=== PATIENT | male | born 1950 | race Caucasian/White ===

== ENCOUNTER 2019-06-12 00:19 | Inpatient (IN) ==
[2019-06-12] MEDS ORDERED: Dextrose Gel 15 GM/37.5 ML TUBE PO PRN ×4 (02:58→21:30)
[2019-06-12] MEDS: Ringers Solution, Lactated 1,000 ML IVC SCH ×2 (03:23→11:11)
[2019-06-12 04:42] LABS: Basophils % 0.2 %; Eosinophils # 0.1 K/mcL (0.0-0.6); Eosinophils % 0.8 %; Hematocrit 23.4 % (37.5-50.1); Hemoglobin 7.7 g/dL (12.9-16.9); Immature Granulocytes % 0.5 % (0-4); Lymphocytes # 2.4 K/mcL (0.6-4.6); Mean Corpuscular HGB Conc 32.9 g/dL (31.6-35.5); Mean Corpuscular Hemoglobin 30.2 pg (28.0-33.3); Mean Corpuscular Volume 91.8 fL (83.0-100.0); Mean Platelet Volume 9.7 fL (9.4-12.4); Monocytes # 1.1 K/mcL (0.0-1.3); Monocytes % 7.5 %; Neutrophils # 11.1 K/mcL (1.6-8.9); Platelet Count 271 K/mcL (140-400); Red Blood Count 2.55 M/mcL (4.19-5.50); Red Cell Distribution Width 14.1 % (11.5-14.5); White Blood Count 14.9 K/mcL (4.3-11.1)
[2019-06-12 04:51] LABS: INR 1.3; Prothrombin Time 14.7 Seconds (9.4-12.1)
[2019-06-12 05:08] LABS: Alanine Aminotransferase 20 Units/L (7-52); Albumin 2.8 g/dL (3.5-5.7); Albumin/Globulin Ratio 0.8 (1.1-2.2); Alkaline Phosphatase 85 Units/L (34-104); Aspartate Amino Transferase 21 Units/L (13-39); BUN/Creatinine Ratio 22 (6-26); Bilirubin,Direct 0.3 mg/dL (0.0-0.2); Bilirubin,Indirect 0.3 mg/dL (0.0-1.2); Bilirubin,Total 0.6 mg/dL (0.3-1.0); Blood Urea Nitrogen 22 mg/dL (8-23); Calcium 8.2 mg/dL (8.6-10.3); Carbon Dioxide 27 mEq/L (23-29); Chloride 100 mEq/L (98-107); Cholesterol 52 mg/dL (< 200); Globulin 3.6 g/dL (2.4-3.5); Glucose 67 mg/dL (70-105); HDL Cholesterol 13 mg/dL (40-59); LDL Cholesterol,Calculated 22 mg/dL (0-99); Magnesium 1.5 mg/dL (1.6-2.6); Osmolality,Calculated 286 (280-300); Potassium 3.2 mEq/L (3.5-5.1); Sodium 137 mEq/L (136-145); Total Protein 6.4 g/dL (6.4-8.9); Triglycerides 87 mg/dL (< 150); eGFR For African Americans > 60 (> 60); eGFR For Non-African Americans > 60 (> 60)
[2019-06-12] MEDS ORDERED: Potassium Chloride 40 MEQ, Lidocaine 1% 2 ML in 0.9 % Sodium Chloride 500 ML IVPB ONE (06:09)
[2019-06-12] MEDS: Insulin LISPRO 300 UNITS/3 ML VIAL SQ SCH ×3 (06:22→19:48)
[2019-06-12] MEDS: *HR* Dextrose 50 % in Water (Syg) 50 ML SYRINGE IVP PRN ×2 (07:00→13:36)
[2019-06-12 07:42] LABS: Ferritin 559 ng/mL (20-250); Iron < 10 mcg/dL (65-175); Transferrin 118 mg/dL (203-362)
[2019-06-12] MEDS: Piperacillin/Tazobactam 3.375 GM in 0.9 % Sodium Chloride Mini Bag 100 ML IVPB SCH ×2 (08:03→16:14)
[2019-06-12 08:20] LABS: Estimated Average Glucose 148 mg/dl
[2019-06-12] MEDS ORDERED: amLODIPine 5 MG TABLET PO SCH (09:00)
[2019-06-12] MEDS ORDERED: Aspirin 81 MG TAB.CHEW PO SCH (09:00)
[2019-06-12] MEDS ORDERED: 0.9 % Sodium Chloride 250 ML ONE (12:31)
[2019-06-12] MEDS ORDERED: D10% in Water 500 ML IVC SCH (16:45)
[2019-06-12 17:24] LABS: Hematocrit 26.9 % (37.5-50.1); Hemoglobin 8.7 g/dL (12.9-16.9)
[2019-06-12] MEDS ORDERED: Lidocaine -MPF 2% 2 ML VIAL ONE ×2 (18:57→18:58)
[2019-06-12] MEDS ORDERED: Propofol 500 MG/50 ML INFUS..BTL ONE (18:57)
[2019-06-12] MEDS ORDERED: *HR* Propofol 200 MG/20 ML VIAL IVP ONE (20:11)
[2019-06-12] MEDS ORDERED: *HR* Dextrose 50 % in Water (Syg) 50 ML SYRINGE IVP PRN (21:30)
[2019-06-12] MEDS ORDERED: *HR* Heparin 5,000 UNIT/ML VIAL SQ SCH (22:00)
[2019-06-12] MEDS: *HR* Heparin 5,000 UNIT/ML VIAL SQ SCH (22:23)
[2019-06-12] MEDS ORDERED: Acetaminophen 325 MG TABLET PO ONE (22:34)
[2019-06-12] MEDS: D10% in Water 500 ML IVC SCH (23:19)
[2019-06-13] MEDS ORDERED: tiZANidine 4 MG TABLET PO ONE (00:56)
[2019-06-13] MEDS: D10% in Water 500 ML IVC SCH (03:19)
[2019-06-13] MEDS: Piperacillin/Tazobactam 3.375 GM in 0.9 % Sodium Chloride Mini Bag 100 ML IVPB SCH ×3 (03:20→18:33)
[2019-06-13 05:44] LABS: Hematocrit 21.6 % (37.5-50.1); Mean Corpuscular HGB Conc 32.4 g/dL (31.6-35.5); Mean Corpuscular Hemoglobin 29.2 pg (28.0-33.3); Mean Platelet Volume 10.1 fL (9.4-12.4); Platelet Count 264 K/mcL (140-400); Red Cell Distribution Width 14.8 % (11.5-14.5); White Blood Count 13.5 K/mcL (4.3-11.1)
[2019-06-13] MEDS ORDERED: D10% in Water 500 ML IVC SCH (06:00)
[2019-06-13 06:02] LABS: BUN/Creatinine Ratio 11 (6-26); Blood Urea Nitrogen 15 mg/dL (8-23); Calcium 7.7 mg/dL (8.6-10.3); Carbon Dioxide 24 mEq/L (23-29); Chloride 99 mEq/L (98-107); Glucose 114 mg/dL (70-105); Osmolality,Calculated 282 (280-300); Potassium 3.5 mEq/L (3.5-5.1); Sodium 135 mEq/L (136-145); eGFR For African Americans > 60 (> 60); eGFR For Non-African Americans 51 (> 60)
[2019-06-13] MEDS: amLODIPine 5 MG TABLET PO SCH (08:22)
[2019-06-13] MEDS ORDERED: 0.9 % Sodium Chloride 250 ML IVC SCH (08:30)
[2019-06-13] MEDS: Clindamycin 600 MG/50 ML 600 MG/50 ML IV.SOLN IVPB SCH ×2 (08:36→17:09)
[2019-06-13] MEDS: *HR* Heparin 5,000 UNIT/ML VIAL SQ SCH ×2 (08:36→23:32)
[2019-06-13] MEDS: Aspirin 81 MG TAB.CHEW PO SCH (08:37)
[2019-06-13] MEDS: Lactobacillus 1 EACH CAP.SPRINK PO SCH ×2 (08:37→21:54)
[2019-06-13 10:04] LABS: Hematocrit 24.1 % (37.5-50.1); Hemoglobin 7.7 g/dL (12.9-16.9)
[2019-06-13 12:27] LABS: C-Reactive Protein 249 mg/L (Less than 10); Creatine Kinase 1135 Units/L (30-223)
[2019-06-13] MEDS ORDERED: 0.9 % Sodium Chloride 500 ML ONE ×2 (12:46→18:41)
[2019-06-13 17:24] LABS: Hematocrit 25.2 % (37.5-50.1); Hemoglobin 8.4 g/dL (12.9-16.9)
[2019-06-13] MEDS: tiZANidine 4 MG TABLET PO PRN (19:32)
[2019-06-13] MEDS ORDERED: Insulin LISPRO 300 UNITS/3 ML VIAL SQ SCH ×2 (21:00)
[2019-06-13 22:01] LABS: Hematocrit 27.1 % (37.5-50.1)
[2019-06-14] MEDS: Clindamycin 600 MG/50 ML 600 MG/50 ML IV.SOLN IVPB SCH ×3 (00:23→16:57)
[2019-06-14] MEDS: Piperacillin/Tazobactam 3.375 GM in 0.9 % Sodium Chloride Mini Bag 100 ML IVPB SCH ×3 (02:55→20:10)
[2019-06-14 07:07] LABS: Hematocrit 26.4 % (37.5-50.1); Hemoglobin 8.7 g/dL (12.9-16.9); Mean Corpuscular Hemoglobin 29.4 pg (28.0-33.3); Mean Corpuscular Volume 89.2 fL (83.0-100.0); Platelet Count 263 K/mcL (140-400); Red Blood Count 2.96 M/mcL (4.19-5.50); Red Cell Distribution Width 14.9 % (11.5-14.5); White Blood Count 15.9 K/mcL (4.3-11.1)
[2019-06-14 07:17] LABS: Calcium 7.6 mg/dL (8.6-10.3); Potassium 3.7 mEq/L (3.5-5.1)
[2019-06-14 07:19] LABS: Creatine Kinase 482 Units/L (30-223)
[2019-06-14] MEDS: Aspirin 81 MG TAB.CHEW PO SCH (08:14)
[2019-06-14] MEDS: amLODIPine 5 MG TABLET PO SCH (08:14)
[2019-06-14] MEDS: Lactobacillus 1 EACH CAP.SPRINK PO SCH ×2 (08:14→20:11)
[2019-06-14 08:18] LABS: C-Reactive Protein 257 mg/L (Less than 10)
[2019-06-14 09:39] LABS: Bilirubin,Urine Negative (Negative); Blood,Urine Large (Negative); Clarity,Urine Cloudy (Clear); Color,Urine Yellow (Yellow); Glucose,Urine (UA) Normal (Normal); Ketones,Urine Negative (Negative); Leukocyte Esterase,Urine Small (Negative); Nitrite,Urine Negative (Negative); PH,Urine 6.5 pH Units (5.0-8.0); Protein,Urine 100 mg/dL (Neg-Trace); Specific Gravity,Urine 1.013 (1.010-1.025); Urobilinogen,Urine Normal (Normal)
[2019-06-14 09:40] LABS: Bacteria,Urine None Seen per hpf (None-Few); Hyaline Casts,Urine Few per lpf (None-Few); RBC,Urine 30-50 per hpf (0-3); Squamous Epithelial Cell,Urine Many per lpf (None-Few); WBC,Urine 15-30 per hpf (0-3)
[2019-06-14] MEDS: *HR* Heparin 5,000 UNIT/ML VIAL SQ SCH ×2 (10:44→23:15)
[2019-06-14] MEDS ORDERED: 0.9 % Sodium Chloride 1,000 ML IVC SCH (10:45)
[2019-06-14] MEDS: tiZANidine 4 MG TABLET PO PRN ×2 (10:52→19:29)
[2019-06-14 21:08] LABS: Hematocrit 26.4 % (37.5-50.1); Hemoglobin 8.8 g/dL (12.9-16.9)
[2019-06-15] MEDS: Clindamycin 600 MG/50 ML 600 MG/50 ML IV.SOLN IVPB SCH ×4 (00:59→23:49)
[2019-06-15 07:13] LABS: Hematocrit 26.2 % (37.5-50.1); Hemoglobin 8.7 g/dL (12.9-16.9); Mean Corpuscular HGB Conc 33.2 g/dL (31.6-35.5); Mean Corpuscular Hemoglobin 28.9 pg (28.0-33.3); Mean Platelet Volume 9.7 fL (9.4-12.4); Platelet Count 294 K/mcL (140-400); Red Blood Count 3.01 M/mcL (4.19-5.50); Red Cell Distribution Width 14.8 % (11.5-14.5); White Blood Count 15.1 K/mcL (4.3-11.1)
[2019-06-15 07:27] LABS: Creatine Kinase 694 Units/L (30-223)
[2019-06-15 07:31] LABS: Calcium 7.4 mg/dL (8.6-10.3); Potassium 3.7 mEq/L (3.5-5.1)
[2019-06-15] MEDS ORDERED: Dextrose Gel 15 GM/37.5 ML TUBE PO PRN (09:15)
[2019-06-15] MEDS: Piperacillin/Tazobactam 3.375 GM in 0.9 % Sodium Chloride Mini Bag 100 ML IVPB SCH ×2 (09:16→20:08)
[2019-06-15] MEDS: Aspirin 81 MG TAB.CHEW PO SCH (09:18)
[2019-06-15] MEDS: *HR* Heparin 5,000 UNIT/ML VIAL SQ SCH ×2 (09:18→21:42)
[2019-06-15] MEDS: Lactobacillus 1 EACH CAP.SPRINK PO SCH ×2 (09:18→20:09)
[2019-06-15] MEDS: amLODIPine 5 MG TABLET PO SCH (09:18)
[2019-06-15 09:25] LABS: C-Reactive Protein 215 mg/L (Less than 10)
[2019-06-15] MEDS: tiZANidine 4 MG TABLET PO PRN (09:27)
[2019-06-15] MEDS ORDERED: Aminoglycoside Consult 1 EACH MC ONE (10:32)
[2019-06-15] MEDS ORDERED: D10% in Water 500 ML IVC SCH (11:34)
[2019-06-15] MEDS ORDERED: Vancomycin 1,000 MG, Sodium Chloride IRRigation 1,000 ML IR ONE (14:05)
[2019-06-15 14:09] LABS: Uric Acid 7.3 mg/dL (2.3-7.6)
[2019-06-15] MEDS ORDERED: ceFAZolin 1,000 MG, Sodium Chloride IRRigation 1,000 ML IR ONE (14:50)
[2019-06-15] MEDS ORDERED: *HR* Propofol 200 MG/20 ML VIAL IVP ONE (14:54)
[2019-06-15] MEDS ORDERED: *HR* FentaNYL (PF) 100 MCG/2 ML VIAL ONE ×2 (14:54→16:56)
[2019-06-15] MEDS ORDERED: Lidocaine -MPF 2% 2 ML VIAL ONE (14:55)
[2019-06-15] MEDS ORDERED: *HR* Succinylcholine 200 MG/10 ML VIAL IVP ONE (14:55)
[2019-06-15] MEDS ORDERED: Ondansetron 4 MG/2 ML VIAL ONE (14:55)
[2019-06-15] MEDS ORDERED: Dexamethasone 4 MG/ML VIAL ONE (14:55)
[2019-06-15] MEDS ORDERED: EPHEDrine 50 MG/ML VIAL ONE (15:17)
[2019-06-15] MEDS ORDERED: 0.9 % Sodium Chloride 1,000 ML IVC SCH (21:15)
[2019-06-16] MEDS: tiZANidine 4 MG TABLET PO PRN (01:10)
[2019-06-16] MEDS ORDERED: Ondansetron ODT 4 MG TAB.RAPDIS SL PRN (03:16)
[2019-06-16] MEDS ORDERED: D10% in Water 500 ML IVC SCH (03:16)
[2019-06-16] MEDS ORDERED: *HR* Dextrose 50 % in Water (Syg) 50 ML SYRINGE IVP PRN (03:16)
[2019-06-16] MEDS ORDERED: ceFAZolin 1,000 MG, Sodium Chloride IRRigation 1,000 ML IR ONE (03:16)
[2019-06-16] MEDS ORDERED: 0.9 % Sodium Chloride 250 ML IVC SCH (03:16)
[2019-06-16] MEDS ORDERED: Dextrose Gel 15 GM/37.5 ML TUBE PO PRN ×2 (03:16)
[2019-06-16 07:41] LABS: Basophils % 0.2 %; Hemoglobin 7.5 g/dL (12.9-16.9); Lymphocytes # 1.1 K/mcL (0.6-4.6); Mean Corpuscular HGB Conc 32.6 g/dL (31.6-35.5); Mean Corpuscular Volume 88.8 fL (83.0-100.0); Mean Platelet Volume 9.9 fL (9.4-12.4); Monocytes # 0.7 K/mcL (0.0-1.3); Monocytes % 5.9 %; Neutrophils # 10.6 K/mcL (1.6-8.9); Platelet Count 285 K/mcL (140-400); Red Blood Count 2.59 M/mcL (4.19-5.50); Red Cell Distribution Width 14.8 % (11.5-14.5); Segmented Neutrophils % 83.9 %; White Blood Count 12.6 K/mcL (4.3-11.1)
[2019-06-16 07:55] LABS: Calcium 6.6 mg/dL (8.6-10.3); Potassium 4.4 mEq/L (3.5-5.1)
[2019-06-16] MEDS ORDERED: Clindamycin 600 MG/50 ML 600 MG/50 ML IV.SOLN IVPB SCH (08:00)
[2019-06-16] MEDS ORDERED: amLODIPine 5 MG TABLET PO SCH (09:00)
[2019-06-16] MEDS ORDERED: 0.9 % Sodium Chloride 1,000 ML IVC SCH (09:30)
[2019-06-16] MEDS ORDERED: 0.9 % Sodium Chloride 1,000 ML ONE (09:33)
[2019-06-16] MEDS: Piperacillin/Tazobactam 3.375 GM in 0.9 % Sodium Chloride Mini Bag 100 ML IVPB SCH ×2 (09:40→22:33)
[2019-06-16] MEDS: *HR* Heparin 5,000 UNIT/ML VIAL SQ SCH ×2 (09:41→22:33)
[2019-06-16] MEDS: Lactobacillus 1 EACH CAP.SPRINK PO SCH ×2 (09:41→22:33)
[2019-06-16] MEDS: Aspirin 81 MG TAB.CHEW PO SCH (09:41)
[2019-06-16 11:33] LABS: Hematocrit 24.6 % (37.5-50.1); Hemoglobin 7.9 g/dL (12.9-16.9)
[2019-06-16] MEDS: 0.9 % Sodium Chloride 1,000 ML IVC SCH (22:32)
[2019-06-16 23:05] LABS: Hematocrit 22.8 % (37.5-50.1); Hemoglobin 7.6 g/dL (12.9-16.9)
[2019-06-17 04:09] LABS: VBG Ionized Calcium 0.81 mmol/L (1.15-1.35)
[2019-06-17 04:10] LABS: Basophils % 0.4 %; Eosinophils # 0.4 K/mcL (0.0-0.6); Eosinophils % 3.3 %; Hematocrit 21.4 % (37.5-50.1); Hemoglobin 6.9 g/dL (12.9-16.9); Immature Granulocytes % 1.4 % (0-4); Lymphocytes # 2.4 K/mcL (0.6-4.6); Mean Corpuscular HGB Conc 32.2 g/dL (31.6-35.5); Mean Corpuscular Hemoglobin 28.8 pg (28.0-33.3); Mean Corpuscular Volume 89.2 fL (83.0-100.0); Mean Platelet Volume 9.4 fL (9.4-12.4); Monocytes # 0.9 K/mcL (0.0-1.3); Monocytes % 8.7 %; Neutrophils # 6.7 K/mcL (1.6-8.9); Platelet Count 294 K/mcL (140-400); Red Cell Distribution Width 14.6 % (11.5-14.5); Segmented Neutrophils % 63.2 %; White Blood Count 10.6 K/mcL (4.3-11.1)
[2019-06-17 04:29] LABS: Calcium 5.8 mg/dL (8.6-10.3)
[2019-06-17] MEDS ORDERED: Calcium Gluconate 1gm/50mL 1 GM/50 ML BAG IVPB ONE ×2 (05:00→17:59)
[2019-06-17] MEDS: 0.9 % Sodium Chloride 1,000 ML IVC SCH ×2 (05:15→17:37)
[2019-06-17 06:28] LABS: Magnesium 1.8 mg/dL (1.6-2.6)
[2019-06-17] MEDS: Lactobacillus 1 EACH CAP.SPRINK PO SCH ×2 (09:08→19:51)
[2019-06-17] MEDS: tiZANidine 4 MG TABLET PO PRN ×3 (09:08→22:11)
[2019-06-17] MEDS: Piperacillin/Tazobactam 3.375 GM in 0.9 % Sodium Chloride Mini Bag 100 ML IVPB SCH ×2 (09:09→20:51)
[2019-06-17] MEDS: Aspirin 81 MG TAB.CHEW PO SCH (09:09)
[2019-06-17] MEDS ORDERED: Cholecalciferol (D-3) 1,000 UNIT (25MCG) TABLET PO SCH (09:22)
[2019-06-17] MEDS ORDERED: 0.9 % Sodium Chloride 500 ML ONE (10:18)
[2019-06-17 14:38] LABS: Hematocrit 25.6 % (37.5-50.1); Hemoglobin 8.3 g/dL (12.9-16.9)
[2019-06-17 15:17] LABS: Bilirubin,Urine Negative (Negative); Blood,Urine Moderate (Negative); Clarity,Urine Clear (Clear); Color,Urine Yellow (Yellow); Glucose,Urine (UA) Normal (Normal); Ketones,Urine Negative (Negative); Leukocyte Esterase,Urine Trace (Negative); Nitrite,Urine Negative (Negative); Protein,Urine Trace mg/dL (Neg-Trace); Urobilinogen,Urine Normal (Normal)
[2019-06-17] MEDS: Ergocalciferol (VIT D2) 50,000 UNIT (1.25MG) CAP PO SCH (15:17)
[2019-06-17 15:28] LABS: Sodium, Urine 30.2 mEq/L
[2019-06-18 04:48] LABS: Basophils % 0.4 %; Eosinophils # 0.4 K/mcL (0.0-0.6); Eosinophils % 3.9 %; Hematocrit 25.4 % (37.5-50.1); Hemoglobin 8.2 g/dL (12.9-16.9); Lymphocytes # 1.8 K/mcL (0.6-4.6); Lymphocytes % 19.4 %; Mean Corpuscular HGB Conc 32.3 g/dL (31.6-35.5); Mean Corpuscular Hemoglobin 28.9 pg (28.0-33.3); Mean Corpuscular Volume 89.4 fL (83.0-100.0); Mean Platelet Volume 9.1 fL (9.4-12.4); Monocytes # 0.8 K/mcL (0.0-1.3); Monocytes % 8.1 %; Neutrophils # 6.2 K/mcL (1.6-8.9); Platelet Count 316 K/mcL (140-400); Red Blood Count 2.84 M/mcL (4.19-5.50); Red Cell Distribution Width 14.6 % (11.5-14.5); Segmented Neutrophils % 66.2 %; White Blood Count 9.3 K/mcL (4.3-11.1)
[2019-06-18 05:07] LABS: Albumin 2.3 g/dL (3.5-5.7); Albumin/Globulin Ratio 0.7 (1.1-2.2); Bilirubin,Total 0.4 mg/dL (0.3-1.0); Calcium 6.5 mg/dL (8.6-10.3); Globulin 3.2 g/dL (2.4-3.5); Magnesium 1.9 mg/dL (1.6-2.6); Phosphorous 6.9 mg/dL (2.7-4.5); Potassium 4.1 mEq/L (3.5-5.1); Total Protein 5.5 g/dL (6.4-8.9)
[2019-06-18] MEDS: 0.9 % Sodium Chloride 1,000 ML IVC SCH ×2 (07:14→21:06)
[2019-06-18] MEDS ORDERED: D5% in Water 1,000 ML IVC PRN (07:29)
[2019-06-18] MEDS ORDERED: Dextrose Gel 15 GM/37.5 ML TUBE PO PRN ×2 (07:29)
[2019-06-18] MEDS ORDERED: *HR* Dextrose 50 % in Water (Syg) 50 ML SYRINGE IVP PRN (07:29)
[2019-06-18] MEDS: Piperacillin/Tazobactam 3.375 GM in 0.9 % Sodium Chloride Mini Bag 100 ML IVPB SCH ×2 (09:15→20:05)
[2019-06-18] MEDS: Lactobacillus 1 EACH CAP.SPRINK PO SCH ×2 (09:15→20:05)
[2019-06-18] MEDS: Aspirin 81 MG TAB.CHEW PO SCH (09:15)
[2019-06-18] MEDS: Insulin LISPRO 300 UNITS/3 ML VIAL SQ SCH ×4 (11:38→21:03)
[2019-06-18] MEDS ORDERED: Insulin LISPRO 300 UNITS/3 ML VIAL SQ SCH (12:00)
[2019-06-18] MEDS ORDERED: Calcium Gluconate 1gm/50mL 1 GM/50 ML BAG IVPB ONE (13:15)
[2019-06-18] MEDS: amLODIPine 5 MG TABLET PO SCH (13:24)
[2019-06-18] MEDS: *HR* Heparin 5,000 UNIT/ML VIAL SQ SCH (17:23)
[2019-06-19] MEDS: Insulin LISPRO 300 UNITS/3 ML VIAL SQ SCH ×4 (01:29→18:53)
[2019-06-19] MEDS: *HR* Heparin 5,000 UNIT/ML VIAL SQ SCH ×2 (05:29→18:53)
[2019-06-19 05:59] LABS: Basophils # 0.1 K/mcL (0.0-0.2); Basophils % 0.6 %; Eosinophils # 0.3 K/mcL (0.0-0.6); Eosinophils % 3.5 %; Hematocrit 25.5 % (37.5-50.1); Hemoglobin 8.3 g/dL (12.9-16.9); Immature Granulocytes % 2.5 % (0-4); Lymphocytes # 1.8 K/mcL (0.6-4.6); Lymphocytes % 18.7 %; Mean Corpuscular HGB Conc 32.5 g/dL (31.6-35.5); Mean Corpuscular Hemoglobin 29.3 pg (28.0-33.3); Mean Corpuscular Volume 90.1 fL (83.0-100.0); Mean Platelet Volume 9.2 fL (9.4-12.4); Monocytes # 0.7 K/mcL (0.0-1.3); Monocytes % 7.5 %; Neutrophils # 6.6 K/mcL (1.6-8.9); Platelet Count 352 K/mcL (140-400); Red Blood Count 2.83 M/mcL (4.19-5.50); Red Cell Distribution Width 14.5 % (11.5-14.5); Segmented Neutrophils % 67.2 %; White Blood Count 9.8 K/mcL (4.3-11.1)
[2019-06-19 06:21] LABS: Albumin 2.4 g/dL (3.5-5.7); Albumin/Globulin Ratio 0.7 (1.1-2.2); Bilirubin,Total 0.3 mg/dL (0.3-1.0); Calcium 7.3 mg/dL (8.6-10.3); Globulin 3.3 g/dL (2.4-3.5); Magnesium 1.9 mg/dL (1.6-2.6); Potassium 4.4 mEq/L (3.5-5.1); Total Protein 5.7 g/dL (6.4-8.9)
[2019-06-19] MEDS ORDERED: *HR* Heparin 10,000 UNIT/10 ML VIAL IV PRN (08:33)
[2019-06-19] MEDS ORDERED: 0.9 % Sodium Chloride 250 ML IVC PRN (08:33)
[2019-06-19] MEDS ORDERED: 0.9 % Sodium Chloride 1,000 ML PRIME SCH (08:45)
[2019-06-19 09:29] LABS: Hepatitis B Surface Antibody 590.94 mIU/mL
[2019-06-19 09:40] LABS: Hepatitis B Surface Antigen Nonreactive (Nonreactive)
[2019-06-19] MEDS: Piperacillin/Tazobactam 3.375 GM in 0.9 % Sodium Chloride Mini Bag 100 ML IVPB SCH ×2 (10:03→18:55)
[2019-06-19 10:08] LABS: Hepatitis B Core IgM Nonreactive (Nonreactive)
[2019-06-19] MEDS ORDERED: Heparin 1,000 UNITS/500 mL 500 ML ONE (10:11)
[2019-06-19] MEDS: Lactobacillus 1 EACH CAP.SPRINK PO SCH ×2 (10:12→21:32)
[2019-06-19] MEDS: Aspirin 81 MG TAB.CHEW PO SCH (10:12)
[2019-06-19] MEDS: amLODIPine 5 MG TABLET PO SCH (10:14)
[2019-06-19] MEDS ORDERED: *HR* Heparin 5,000 UNIT/ML VIAL ONE (11:18)
[2019-06-19] MEDS: tiZANidine 4 MG TABLET PO PRN (21:44)
[2019-06-20] MEDS: Piperacillin/Tazobactam 3.375 GM in 0.9 % Sodium Chloride Mini Bag 100 ML IVPB SCH ×2 (06:28→17:02)
[2019-06-20 06:59] LABS: Basophils % 0.4 %; Eosinophils # 0.3 K/mcL (0.0-0.6); Eosinophils % 3.8 %; Hematocrit 24.2 % (37.5-50.1); Immature Granulocytes % 1.8 % (0-4); Lymphocytes # 1.8 K/mcL (0.6-4.6); Mean Corpuscular HGB Conc 33.1 g/dL (31.6-35.5); Mean Corpuscular Hemoglobin 29.1 pg (28.0-33.3); Mean Platelet Volume 9.3 fL (9.4-12.4); Monocytes # 0.7 K/mcL (0.0-1.3); Monocytes % 7.5 %; Platelet Count 355 K/mcL (140-400); Red Blood Count 2.75 M/mcL (4.19-5.50); Red Cell Distribution Width 14.8 % (11.5-14.5); Segmented Neutrophils % 66.5 %
[2019-06-20 07:17] LABS: Albumin 2.4 g/dL (3.5-5.7); Albumin/Globulin Ratio 0.7 (1.1-2.2); Bilirubin,Total 0.3 mg/dL (0.3-1.0); Calcium 7.3 mg/dL (8.6-10.3); Globulin 3.4 g/dL (2.4-3.5); Magnesium 1.9 mg/dL (1.6-2.6); Phosphorous 6.5 mg/dL (2.7-4.5); Total Protein 5.8 g/dL (6.4-8.9)
[2019-06-20] MEDS: *HR* Heparin 5,000 UNIT/ML VIAL SQ SCH ×2 (07:33→17:02)
[2019-06-20] MEDS ORDERED: *HR* Heparin 10,000 UNIT/10 ML VIAL IV PRN ×2 (07:35)
[2019-06-20] MEDS ORDERED: 0.9 % Sodium Chloride 250 ML IVC PRN (07:35)
[2019-06-20] MEDS ORDERED: 0.9 % Sodium Chloride 1,000 ML PRIME SCH (07:45)
[2019-06-20] MEDS: Insulin LISPRO 300 UNITS/3 ML VIAL SQ SCH ×3 (08:02→17:01)
[2019-06-20] MEDS: Aspirin 81 MG TAB.CHEW PO SCH (09:13)
[2019-06-20] MEDS: Lactobacillus 1 EACH CAP.SPRINK PO SCH ×2 (09:13→20:37)
[2019-06-20] MEDS: tiZANidine 4 MG TABLET PO PRN (09:18)
[2019-06-20] MEDS: amLODIPine 5 MG TABLET PO SCH (13:36)
[2019-06-21 04:32] LABS: Calcium 7.7 mg/dL (8.6-10.3); Potassium 3.7 mEq/L (3.5-5.1)
[2019-06-21] MEDS: *HR* Heparin 5,000 UNIT/ML VIAL SQ SCH ×2 (06:11→17:13)
[2019-06-21] MEDS: Piperacillin/Tazobactam 3.375 GM in 0.9 % Sodium Chloride Mini Bag 100 ML IVPB SCH ×2 (06:11→17:14)
[2019-06-21] MEDS ORDERED: 0.9 % Sodium Chloride 250 ML IVC PRN (08:16)
[2019-06-21] MEDS: Insulin LISPRO 300 UNITS/3 ML VIAL SQ SCH ×3 (08:40→17:13)
[2019-06-21] MEDS: Aspirin 81 MG TAB.CHEW PO SCH (08:45)
[2019-06-21] MEDS: Lactobacillus 1 EACH CAP.SPRINK PO SCH ×2 (08:45→21:53)
[2019-06-21] MEDS: tiZANidine 4 MG TABLET PO PRN (11:49)
[2019-06-21] MEDS: amLODIPine 5 MG TABLET PO SCH (15:17)
[2019-06-22 01:59] LABS: Basophils # 0.1 K/mcL (0.0-0.2); Basophils % 0.6 %; Eosinophils # 0.3 K/mcL (0.0-0.6); Eosinophils % 4.2 %; Hematocrit 24.7 % (37.5-50.1); Immature Granulocytes % 1.3 % (0-4); Lymphocytes % 26.2 %; Mean Corpuscular HGB Conc 32.4 g/dL (31.6-35.5); Mean Corpuscular Hemoglobin 29.2 pg (28.0-33.3); Mean Corpuscular Volume 90.1 fL (83.0-100.0); Mean Platelet Volume 8.7 fL (9.4-12.4); Monocytes # 0.8 K/mcL (0.0-1.3); Monocytes % 10.2 %; Neutrophils # 4.5 K/mcL (1.6-8.9); Platelet Count 303 K/mcL (140-400); Red Blood Count 2.74 M/mcL (4.19-5.50); Red Cell Distribution Width 14.7 % (11.5-14.5); Segmented Neutrophils % 57.5 %; White Blood Count 7.8 K/mcL (4.3-11.1)
[2019-06-22 02:23] LABS: Calcium 8.2 mg/dL (8.6-10.3); Potassium 3.9 mEq/L (3.5-5.1)
[2019-06-22] MEDS: Piperacillin/Tazobactam 3.375 GM in 0.9 % Sodium Chloride Mini Bag 100 ML IVPB SCH ×2 (06:17→17:50)
[2019-06-22] MEDS: *HR* Heparin 5,000 UNIT/ML VIAL SQ SCH ×2 (06:19→17:50)
[2019-06-22] MEDS: Metoprolol 100 MG TABLET PO SCH ×2 (09:57→19:59)
[2019-06-22] MEDS: Aspirin 81 MG TAB.CHEW PO SCH (09:57)
[2019-06-22] MEDS: amLODIPine 5 MG TABLET PO SCH (09:57)
[2019-06-22] MEDS: Insulin LISPRO 300 UNITS/3 ML VIAL SQ SCH ×3 (09:57→17:49)
[2019-06-22] MEDS: Lactobacillus 1 EACH CAP.SPRINK PO SCH ×2 (09:57→19:59)
[2019-06-23 02:56] LABS: Hematocrit 24.6 % (37.5-50.1); Hemoglobin 7.9 g/dL (12.9-16.9); Mean Corpuscular HGB Conc 32.1 g/dL (31.6-35.5); Mean Corpuscular Hemoglobin 28.7 pg (28.0-33.3); Mean Corpuscular Volume 89.5 fL (83.0-100.0); Platelet Count 290 K/mcL (140-400); Red Blood Count 2.75 M/mcL (4.19-5.50); Red Cell Distribution Width 14.8 % (11.5-14.5); White Blood Count 7.6 K/mcL (4.3-11.1)
[2019-06-23 03:17] LABS: Calcium 8.7 mg/dL (8.6-10.3); Potassium 4.1 mEq/L (3.5-5.1)
[2019-06-23] MEDS: Piperacillin/Tazobactam 3.375 GM in 0.9 % Sodium Chloride Mini Bag 100 ML IVPB SCH ×2 (06:13→17:20)
[2019-06-23] MEDS: *HR* Heparin 5,000 UNIT/ML VIAL SQ SCH ×2 (06:13→17:21)
[2019-06-23] MEDS: Lactobacillus 1 EACH CAP.SPRINK PO SCH ×2 (07:49→20:15)
[2019-06-23] MEDS: Aspirin 81 MG TAB.CHEW PO SCH (07:49)
[2019-06-23] MEDS: Insulin LISPRO 300 UNITS/3 ML VIAL SQ SCH ×3 (07:52→17:21)
[2019-06-23] MEDS ORDERED: 0.9 % Sodium Chloride 250 ML IVC PRN (08:14)
[2019-06-23] MEDS ORDERED: *HR* Heparin 10,000 UNIT/10 ML VIAL IV PRN (08:14)
[2019-06-23] MEDS: 0.9 % Sodium Chloride 1,000 ML PRIME SCH (10:15)
[2019-06-23] MEDS: amLODIPine 5 MG TABLET PO SCH (14:27)
[2019-06-23] MEDS: Metoprolol 100 MG TABLET PO SCH ×2 (14:27→20:15)
[2019-06-23] MEDS: hydrALAZINE 25 MG TABLET PO SCH ×2 (14:27→20:15)
[2019-06-23] MEDS: tiZANidine 4 MG TABLET PO PRN (15:13)
[2019-06-24 04:05] LABS: Hematocrit 24.1 % (37.5-50.1); Hemoglobin 7.7 g/dL (12.9-16.9); Mean Corpuscular Hemoglobin 29.5 pg (28.0-33.3); Mean Corpuscular Volume 92.3 fL (83.0-100.0); Platelet Count 265 K/mcL (140-400); Red Blood Count 2.61 M/mcL (4.19-5.50); Red Cell Distribution Width 14.6 % (11.5-14.5); White Blood Count 7.1 K/mcL (4.3-11.1)
[2019-06-24 04:22] LABS: Calcium 8.5 mg/dL (8.6-10.3)
[2019-06-24] MEDS: Piperacillin/Tazobactam 3.375 GM in 0.9 % Sodium Chloride Mini Bag 100 ML IVPB SCH ×2 (06:14→17:15)
[2019-06-24] MEDS: *HR* Heparin 5,000 UNIT/ML VIAL SQ SCH ×2 (06:19→17:15)
[2019-06-24] MEDS: Insulin LISPRO 300 UNITS/3 ML VIAL SQ SCH ×3 (07:54→17:15)
[2019-06-24] MEDS: amLODIPine 5 MG TABLET PO SCH (09:12)
[2019-06-24] MEDS: hydrALAZINE 25 MG TABLET PO SCH ×3 (09:12→20:52)
[2019-06-24] MEDS: Aspirin 81 MG TAB.CHEW PO SCH (09:12)
[2019-06-24] MEDS: Lactobacillus 1 EACH CAP.SPRINK PO SCH ×2 (09:12→20:52)
[2019-06-24] MEDS: Metoprolol 100 MG TABLET PO SCH ×2 (09:12→20:52)
[2019-06-24] MEDS: Ergocalciferol (VIT D2) 50,000 UNIT (1.25MG) CAP PO SCH (14:10)
[2019-06-25 04:52] LABS: Basophils # 0.1 K/mcL (0.0-0.2); Basophils % 0.8 %; Eosinophils # 0.3 K/mcL (0.0-0.6); Eosinophils % 4.4 %; Hematocrit 23.9 % (37.5-50.1); Hemoglobin 7.5 g/dL (12.9-16.9); Immature Granulocytes % 0.5 % (0-4); Lymphocytes % 31.8 %; Mean Corpuscular HGB Conc 31.4 g/dL (31.6-35.5); Mean Corpuscular Hemoglobin 28.8 pg (28.0-33.3); Mean Corpuscular Volume 91.9 fL (83.0-100.0); Mean Platelet Volume 9.2 fL (9.4-12.4); Monocytes # 0.6 K/mcL (0.0-1.3); Monocytes % 9.3 %; Neutrophils # 3.4 K/mcL (1.6-8.9); Platelet Count 233 K/mcL (140-400); Red Cell Distribution Width 14.9 % (11.5-14.5); Segmented Neutrophils % 53.2 %; White Blood Count 6.3 K/mcL (4.3-11.1)
[2019-06-25 05:09] LABS: Calcium 9.1 mg/dL (8.6-10.3); Potassium 3.8 mEq/L (3.5-5.1)
[2019-06-25] MEDS: *HR* Heparin 5,000 UNIT/ML VIAL SQ SCH ×2 (05:20→17:25)
[2019-06-25] MEDS: Piperacillin/Tazobactam 3.375 GM in 0.9 % Sodium Chloride Mini Bag 100 ML IVPB SCH ×2 (05:21→17:26)
[2019-06-25] MEDS: tiZANidine 4 MG TABLET PO PRN (05:36)
[2019-06-25] MEDS: Metoprolol 100 MG TABLET PO SCH ×2 (09:49→20:28)
[2019-06-25] MEDS: amLODIPine 5 MG TABLET PO SCH (09:49)
[2019-06-25] MEDS: Aspirin 81 MG TAB.CHEW PO SCH (09:49)
[2019-06-25] MEDS: hydrALAZINE 25 MG TABLET PO SCH ×3 (09:49→20:28)
[2019-06-25] MEDS: Lactobacillus 1 EACH CAP.SPRINK PO SCH ×2 (09:49→20:28)
[2019-06-25] MEDS: Insulin LISPRO 300 UNITS/3 ML VIAL SQ SCH ×5 (09:50→21:17)
[2019-06-26 05:54] LABS: Hematocrit 26.8 % (37.5-50.1); Hemoglobin 8.6 g/dL (12.9-16.9); Mean Corpuscular HGB Conc 32.1 g/dL (31.6-35.5); Mean Corpuscular Hemoglobin 29.1 pg (28.0-33.3); Mean Corpuscular Volume 90.5 fL (83.0-100.0); Mean Platelet Volume 9.4 fL (9.4-12.4); Platelet Count 228 K/mcL (140-400); Red Blood Count 2.96 M/mcL (4.19-5.50); Red Cell Distribution Width 15.1 % (11.5-14.5); White Blood Count 7.2 K/mcL (4.3-11.1)
[2019-06-26 06:15] LABS: Calcium 9.6 mg/dL (8.6-10.3)
[2019-06-26] MEDS ORDERED: 0.9 % Sodium Chloride 250 ML IVC PRN (07:20)
[2019-06-26] MEDS: hydrALAZINE 25 MG TABLET PO SCH ×4 (08:11→21:21)
[2019-06-26] MEDS: amLODIPine 5 MG TABLET PO SCH (08:11)
[2019-06-26] MEDS: Aspirin 81 MG TAB.CHEW PO SCH (08:11)
[2019-06-26] MEDS: Metoprolol 100 MG TABLET PO SCH ×2 (08:11→21:21)
[2019-06-26] MEDS: *HR* Heparin 5,000 UNIT/ML VIAL SQ SCH ×2 (08:11→17:20)
[2019-06-26] MEDS: Lactobacillus 1 EACH CAP.SPRINK PO SCH ×2 (08:11→21:21)
[2019-06-26] MEDS: Piperacillin/Tazobactam 3.375 GM in 0.9 % Sodium Chloride Mini Bag 100 ML IVPB SCH ×2 (08:12→17:21)
[2019-06-26] MEDS: Insulin LISPRO 300 UNITS/3 ML VIAL SQ SCH ×4 (08:14→21:21)
[2019-06-26] MEDS: 0.9 % Sodium Chloride 1,000 ML PRIME SCH (09:10)
[2019-06-27 04:45] LABS: Hematocrit 25.7 % (37.5-50.1); Hemoglobin 8.2 g/dL (12.9-16.9); Mean Corpuscular HGB Conc 31.9 g/dL (31.6-35.5); Mean Corpuscular Hemoglobin 28.8 pg (28.0-33.3); Mean Corpuscular Volume 90.2 fL (83.0-100.0); Mean Platelet Volume 9.6 fL (9.4-12.4); Platelet Count 216 K/mcL (140-400); Red Blood Count 2.85 M/mcL (4.19-5.50); Red Cell Distribution Width 15.2 % (11.5-14.5); White Blood Count 6.4 K/mcL (4.3-11.1)
[2019-06-27 04:51] LABS: INR 1.1
[2019-06-27 05:01] LABS: Calcium 9.3 mg/dL (8.6-10.3); Potassium 3.7 mEq/L (3.5-5.1)
[2019-06-27] MEDS: *HR* Heparin 5,000 UNIT/ML VIAL SQ SCH ×2 (05:55→17:10)
[2019-06-27] MEDS: Piperacillin/Tazobactam 3.375 GM in 0.9 % Sodium Chloride Mini Bag 100 ML IVPB SCH (05:56)
[2019-06-27] MEDS: hydrALAZINE 25 MG TABLET PO SCH ×3 (08:47→20:42)
[2019-06-27] MEDS: Aspirin 81 MG TAB.CHEW PO SCH (08:47)
[2019-06-27] MEDS: Lactobacillus 1 EACH CAP.SPRINK PO SCH ×2 (08:47→20:42)
[2019-06-27] MEDS: Metoprolol 100 MG TABLET PO SCH ×2 (08:47→20:42)
[2019-06-27] MEDS: amLODIPine 5 MG TABLET PO SCH (08:48)
[2019-06-27] MEDS: Insulin LISPRO 300 UNITS/3 ML VIAL SQ SCH ×4 (08:48→20:41)
[2019-06-27] MEDS ORDERED: *HR* Midazolam HCl 2 MG/2 ML VIAL IVP ONE (13:59)
[2019-06-27] MEDS ORDERED: *HR* FentaNYL (PF) 100 MCG/2 ML VIAL IVP ONE (13:59)
[2019-06-27] MEDS ORDERED: Heparin 1,000 UNITS/500 mL 500 ML ONE (14:07)
[2019-06-27] MEDS ORDERED: 0.9 % Sodium Chloride 500 ML ONE (14:21)
[2019-06-27] MEDS ORDERED: *HR* Heparin 5,000 UNIT/ML VIAL ONE (14:37)
[2019-06-27] MEDS ORDERED: Cefepime HCl 1,000 MG in Water for inj. (sterile) 10 ML IVP ONE (18:00)
[2019-06-27] MEDS ORDERED: Cefepime HCl 1,000 MG in 0.9 % Sodium Chloride Mini Bag 100 ML IVPB ONE (18:00)
[2019-06-28 04:39] LABS: Hematocrit 28.7 % (37.5-50.1); Hemoglobin 8.9 g/dL (12.9-16.9); Mean Corpuscular Hemoglobin 28.5 pg (28.0-33.3); Mean Platelet Volume 9.9 fL (9.4-12.4); Platelet Count 201 K/mcL (140-400); Red Blood Count 3.12 M/mcL (4.19-5.50); Red Cell Distribution Width 15.6 % (11.5-14.5); White Blood Count 5.9 K/mcL (4.3-11.1)
[2019-06-28 04:52] LABS: Calcium 9.8 mg/dL (8.6-10.3); Potassium 3.7 mEq/L (3.5-5.1)
[2019-06-28] MEDS: *HR* Heparin 5,000 UNIT/ML VIAL SQ SCH ×2 (05:08→17:07)
[2019-06-28] MEDS ORDERED: 0.9 % Sodium Chloride 250 ML IVC PRN (06:59)
[2019-06-28] MEDS: Insulin LISPRO 300 UNITS/3 ML VIAL SQ SCH ×4 (09:27→21:58)
[2019-06-28] MEDS: hydrALAZINE 25 MG TABLET PO SCH ×3 (09:27→21:07)
[2019-06-28] MEDS: Aspirin 81 MG TAB.CHEW PO SCH (09:27)
[2019-06-28] MEDS: Lactobacillus 1 EACH CAP.SPRINK PO SCH ×2 (09:27→21:06)
[2019-06-28] MEDS: amLODIPine 5 MG TABLET PO SCH (13:08)
[2019-06-28] MEDS: Metoprolol 100 MG TABLET PO SCH ×2 (13:08→21:06)
[2019-06-28] MEDS: Cefepime HCl 2,000 MG in 0.9 % Sodium Chloride Mini Bag 100 ML IVPB SCH (17:11)
[2019-06-28] MEDS ORDERED: Cefepime HCl 2,000 MG in 0.9 % Sodium Chloride Mini Bag 100 ML IVPB SCH (18:00)
[2019-06-28] MEDS ORDERED: Cefepime HCl 2,000 MG in Water for inj. (sterile) 20 ML IVP SCH (18:00)
[2019-06-29 04:33] LABS: Basophils # 0.1 K/mcL (0.0-0.2); Basophils % 1.1 %; Eosinophils # 0.3 K/mcL (0.0-0.6); Eosinophils % 4.9 %; Hematocrit 26.1 % (37.5-50.1); Hemoglobin 8.3 g/dL (12.9-16.9); Immature Granulocytes % 0.6 % (0-4); Lymphocytes # 2.6 K/mcL (0.6-4.6); Lymphocytes % 40.1 %; Mean Corpuscular HGB Conc 31.8 g/dL (31.6-35.5); Mean Corpuscular Hemoglobin 28.9 pg (28.0-33.3); Mean Corpuscular Volume 90.9 fL (83.0-100.0); Mean Platelet Volume 10.2 fL (9.4-12.4); Monocytes # 0.7 K/mcL (0.0-1.3); Monocytes % 10.4 %; Neutrophils # 2.8 K/mcL (1.6-8.9); Platelet Count 181 K/mcL (140-400); Red Blood Count 2.87 M/mcL (4.19-5.50); Red Cell Distribution Width 15.7 % (11.5-14.5); Segmented Neutrophils % 42.9 %; White Blood Count 6.6 K/mcL (4.3-11.1)
[2019-06-29 04:51] LABS: Calcium 9.1 mg/dL (8.6-10.3); Potassium 3.4 mEq/L (3.5-5.1)
[2019-06-29] MEDS: *HR* Heparin 5,000 UNIT/ML VIAL SQ SCH ×2 (05:11→17:45)
[2019-06-29] MEDS: Insulin LISPRO 300 UNITS/3 ML VIAL SQ SCH ×4 (08:08→21:15)
[2019-06-29] MEDS: hydrALAZINE 25 MG TABLET PO SCH ×3 (08:09→21:12)
[2019-06-29] MEDS: Metoprolol 100 MG TABLET PO SCH ×2 (08:09→21:12)
[2019-06-29] MEDS: Lactobacillus 1 EACH CAP.SPRINK PO SCH ×2 (08:09→21:12)
[2019-06-29] MEDS: Aspirin 81 MG TAB.CHEW PO SCH (08:09)
[2019-06-29] MEDS: amLODIPine 5 MG TABLET PO SCH (08:09)
[2019-06-30] MEDS: *HR* Heparin 5,000 UNIT/ML VIAL SQ SCH ×2 (05:18→17:07)
[2019-06-30 05:48] LABS: Calcium 10.1 mg/dL (8.6-10.3); Potassium 3.5 mEq/L (3.5-5.1)
[2019-06-30] MEDS ORDERED: 0.9 % Sodium Chloride 250 ML IVC PRN (06:52)
[2019-06-30] MEDS: Insulin LISPRO 300 UNITS/3 ML VIAL SQ SCH ×4 (07:43→22:03)
[2019-06-30] MEDS: hydrALAZINE 25 MG TABLET PO SCH ×3 (07:44→22:07)
[2019-06-30] MEDS: Aspirin 81 MG TAB.CHEW PO SCH (07:51)
[2019-06-30] MEDS: Lactobacillus 1 EACH CAP.SPRINK PO SCH ×2 (07:51→22:07)
[2019-06-30 08:58] LABS: Basophils # 0.1 K/mcL (0.0-0.2); Basophils % 1.3 %; Eosinophils # 0.3 K/mcL (0.0-0.6); Hematocrit 28.5 % (37.5-50.1); Hemoglobin 8.8 g/dL (12.9-16.9); Immature Granulocytes % 0.5 % (0-4); Immature Platelets 3.2 % (1.1-6.1); Lymphocytes # 2.6 K/mcL (0.6-4.6); Lymphocytes % 42.4 %; Mean Corpuscular HGB Conc 30.9 g/dL (31.6-35.5); Mean Corpuscular Hemoglobin 29.1 pg (28.0-33.3); Mean Corpuscular Volume 94.4 fL (83.0-100.0); Mean Platelet Volume 11.1 fL (9.4-12.4); Monocytes # 0.7 K/mcL (0.0-1.3); Monocytes % 11.4 %; Neutrophils # 2.4 K/mcL (1.6-8.9); Platelet Count 163 K/mcL (140-400); Red Blood Count 3.02 M/mcL (4.19-5.50); Red Cell Distribution Width 16.3 % (11.5-14.5); Segmented Neutrophils % 39.4 %; White Blood Count 6.2 K/mcL (4.3-11.1)
[2019-06-30] MEDS: EPOETIN ALFA-EPBX 10,000 UNIT/ML VIAL SQ SCH (09:03)
[2019-06-30] MEDS: amLODIPine 5 MG TABLET PO SCH (15:11)
[2019-06-30] MEDS: Metoprolol 100 MG TABLET PO SCH ×2 (15:12→22:07)
[2019-06-30] MEDS: Cefepime HCl 2,000 MG in 0.9 % Sodium Chloride Mini Bag 100 ML IVPB SCH (17:06)
[2019-07-01] MEDS: *HR* Heparin 5,000 UNIT/ML VIAL SQ SCH ×2 (05:01→17:07)
[2019-07-01 05:09] LABS: Hematocrit 27.8 % (37.5-50.1); Hemoglobin 8.8 g/dL (12.9-16.9); Mean Corpuscular HGB Conc 31.7 g/dL (31.6-35.5); Mean Corpuscular Hemoglobin 29.6 pg (28.0-33.3); Mean Corpuscular Volume 93.6 fL (83.0-100.0); Mean Platelet Volume 10.4 fL (9.4-12.4); Platelet Count 162 K/mcL (140-400); Red Blood Count 2.97 M/mcL (4.19-5.50); Red Cell Distribution Width 16.7 % (11.5-14.5); White Blood Count 6.5 K/mcL (4.3-11.1)
[2019-07-01 05:28] LABS: Calcium 9.4 mg/dL (8.6-10.3); Potassium 3.3 mEq/L (3.5-5.1)
[2019-07-01] MEDS: Metoprolol 100 MG TABLET PO SCH ×2 (08:21→21:42)
[2019-07-01] MEDS: Insulin LISPRO 300 UNITS/3 ML VIAL SQ SCH ×4 (08:21→21:12)
[2019-07-01] MEDS: Aspirin 81 MG TAB.CHEW PO SCH (08:22)
[2019-07-01] MEDS: hydrALAZINE 25 MG TABLET PO SCH ×3 (08:22→21:42)
[2019-07-01] MEDS: amLODIPine 5 MG TABLET PO SCH (08:22)
[2019-07-01] MEDS: Lactobacillus 1 EACH CAP.SPRINK PO SCH ×2 (08:22→21:41)
[2019-07-01] MEDS: Ergocalciferol (VIT D2) 50,000 UNIT (1.25MG) CAP PO SCH (11:40)
[2019-07-02 08:34] LABS: Hematocrit 27.7 % (37.5-50.1); Hemoglobin 8.7 g/dL (12.9-16.9); Mean Corpuscular HGB Conc 31.4 g/dL (31.6-35.5); Mean Corpuscular Hemoglobin 29.7 pg (28.0-33.3); Mean Corpuscular Volume 94.5 fL (83.0-100.0); Mean Platelet Volume 10.6 fL (9.4-12.4); Platelet Count 156 K/mcL (140-400); Red Blood Count 2.93 M/mcL (4.19-5.50); Red Cell Distribution Width 17.5 % (11.5-14.5); White Blood Count 6.9 K/mcL (4.3-11.1)
[2019-07-02] MEDS: *HR* Heparin 5,000 UNIT/ML VIAL SQ SCH ×2 (08:44→16:50)
[2019-07-02] MEDS: Insulin LISPRO 300 UNITS/3 ML VIAL SQ SCH ×4 (08:45→21:34)
[2019-07-02] MEDS: Aspirin 81 MG TAB.CHEW PO SCH (08:53)
[2019-07-02] MEDS: amLODIPine 5 MG TABLET PO SCH (08:53)
[2019-07-02] MEDS: Lactobacillus 1 EACH CAP.SPRINK PO SCH ×2 (08:53→21:33)
[2019-07-02] MEDS: hydrALAZINE 25 MG TABLET PO SCH ×3 (08:53→21:33)
[2019-07-02] MEDS: Metoprolol 100 MG TABLET PO SCH ×2 (08:53→21:33)
[2019-07-02 08:56] LABS: Calcium 9.4 mg/dL (8.6-10.3); Potassium 3.4 mEq/L (3.5-5.1)
[2019-07-03] MEDS: *HR* Heparin 5,000 UNIT/ML VIAL SQ SCH ×2 (04:48→17:01)
[2019-07-03 05:29] LABS: Hematocrit 28.9 % (37.5-50.1); Hemoglobin 9.1 g/dL (12.9-16.9); Mean Corpuscular HGB Conc 31.5 g/dL (31.6-35.5); Mean Corpuscular Hemoglobin 29.6 pg (28.0-33.3); Mean Corpuscular Volume 94.1 fL (83.0-100.0); Mean Platelet Volume 10.4 fL (9.4-12.4); Platelet Count 165 K/mcL (140-400); Red Blood Count 3.07 M/mcL (4.19-5.50); Red Cell Distribution Width 18.2 % (11.5-14.5)
[2019-07-03 05:51] LABS: Potassium 3.5 mEq/L (3.5-5.1)
[2019-07-03] MEDS ORDERED: 0.9 % Sodium Chloride 250 ML IVC PRN (07:51)
[2019-07-03] MEDS ORDERED: *HR* Heparin 10,000 UNIT/10 ML VIAL IV PRN (07:51)
[2019-07-03] MEDS ORDERED: 0.9 % Sodium Chloride 1,000 ML PRIME SCH (08:00)
[2019-07-03] MEDS: Insulin LISPRO 300 UNITS/3 ML VIAL SQ SCH ×4 (08:38→20:26)
[2019-07-03] MEDS: hydrALAZINE 25 MG TABLET PO SCH ×3 (12:30→20:26)
[2019-07-03] MEDS: Lactobacillus 1 EACH CAP.SPRINK PO SCH ×2 (12:33→20:25)
[2019-07-03] MEDS: Aspirin 81 MG TAB.CHEW PO SCH (12:33)
[2019-07-03] MEDS: amLODIPine 5 MG TABLET PO SCH (12:33)
[2019-07-03] MEDS: EPOETIN ALFA-EPBX 10,000 UNIT/ML VIAL SQ SCH (12:34)
[2019-07-03] MEDS: Metoprolol 100 MG TABLET PO SCH ×2 (12:34→20:26)
[2019-07-03] MEDS: Cefepime HCl 2,000 MG in 0.9 % Sodium Chloride Mini Bag 100 ML IVPB SCH (16:52)
[2019-07-04 04:41] LABS: Hematocrit 29.7 % (37.5-50.1); Hemoglobin 9.5 g/dL (12.9-16.9); Mean Corpuscular Hemoglobin 29.8 pg (28.0-33.3); Mean Corpuscular Volume 93.1 fL (83.0-100.0); Mean Platelet Volume 10.6 fL (9.4-12.4); Platelet Count 155 K/mcL (140-400); Red Blood Count 3.19 M/mcL (4.19-5.50); Red Cell Distribution Width 18.5 % (11.5-14.5); White Blood Count 7.3 K/mcL (4.3-11.1)
[2019-07-04 05:01] LABS: Calcium 9.5 mg/dL (8.6-10.3); Potassium 3.6 mEq/L (3.5-5.1)
[2019-07-04] MEDS: *HR* Heparin 5,000 UNIT/ML VIAL SQ SCH ×2 (05:02→17:20)
[2019-07-04] MEDS: Lactobacillus 1 EACH CAP.SPRINK PO SCH ×2 (09:07→21:17)
[2019-07-04] MEDS: Aspirin 81 MG TAB.CHEW PO SCH (09:08)
[2019-07-04] MEDS: Metoprolol 100 MG TABLET PO SCH ×2 (09:08→21:17)
[2019-07-04] MEDS: amLODIPine 5 MG TABLET PO SCH (09:08)
[2019-07-04] MEDS: Insulin LISPRO 300 UNITS/3 ML VIAL SQ SCH ×4 (09:08→21:20)
[2019-07-04] MEDS: hydrALAZINE 25 MG TABLET PO SCH ×3 (09:08→21:17)
[2019-07-05 04:46] LABS: Hemoglobin 9.3 g/dL (12.9-16.9); Mean Corpuscular HGB Conc 32.1 g/dL (31.6-35.5); Mean Corpuscular Hemoglobin 30.6 pg (28.0-33.3); Mean Corpuscular Volume 95.4 fL (83.0-100.0); Mean Platelet Volume 10.8 fL (9.4-12.4); Platelet Count 153 K/mcL (140-400); Red Blood Count 3.04 M/mcL (4.19-5.50); Red Cell Distribution Width 18.2 % (11.5-14.5); White Blood Count 7.9 K/mcL (4.3-11.1)
[2019-07-05 05:08] LABS: Calcium 9.9 mg/dL (8.6-10.3); Potassium 3.6 mEq/L (3.5-5.1)
[2019-07-05] MEDS: *HR* Heparin 5,000 UNIT/ML VIAL SQ SCH ×2 (05:34→17:59)
[2019-07-05] MEDS ORDERED: 0.9 % Sodium Chloride 250 ML IVC PRN (07:26)
[2019-07-05] MEDS ORDERED: *HR* Heparin 10,000 UNIT/10 ML VIAL IV PRN ×2 (07:26)
[2019-07-05] MEDS ORDERED: 0.9 % Sodium Chloride 1,000 ML PRIME SCH (07:30)
[2019-07-05] MEDS: Lactobacillus 1 EACH CAP.SPRINK PO SCH ×2 (07:52→20:12)
[2019-07-05] MEDS: amLODIPine 5 MG TABLET PO SCH (07:52)
[2019-07-05] MEDS: Aspirin 81 MG TAB.CHEW PO SCH (07:52)
[2019-07-05] MEDS: hydrALAZINE 25 MG TABLET PO SCH ×3 (07:52→20:10)
[2019-07-05] MEDS: Metoprolol 100 MG TABLET PO SCH ×2 (07:53→20:12)
[2019-07-05] MEDS: Insulin LISPRO 300 UNITS/3 ML VIAL SQ SCH ×4 (07:56→20:15)
[2019-07-05] MEDS: EPOETIN ALFA-EPBX 10,000 UNIT/ML VIAL SQ SCH (14:31)
[2019-07-05] MEDS ORDERED: Heparin 1,000 UNITS/500 mL 500 ML ONE (16:09)
[2019-07-05] MEDS ORDERED: *HR* Heparin 5,000 UNIT/ML VIAL ONE (16:18)
[2019-07-05] MEDS: Cefepime HCl 2,000 MG in 0.9 % Sodium Chloride Mini Bag 100 ML IVPB SCH (18:00)
[2019-07-05] MEDS ORDERED: Insulin DETEMIR 100 UNIT/ML X5UNITS SQ SCH (21:00)
[2019-07-06] MEDS: *HR* Heparin 5,000 UNIT/ML VIAL SQ SCH (04:30)
[2019-07-06 04:56] LABS: Hemoglobin 9.1 g/dL (12.9-16.9); Mean Corpuscular HGB Conc 31.4 g/dL (31.6-35.5); Mean Corpuscular Hemoglobin 29.6 pg (28.0-33.3); Mean Corpuscular Volume 94.5 fL (83.0-100.0); Mean Platelet Volume 10.9 fL (9.4-12.4); Platelet Count 143 K/mcL (140-400); Red Blood Count 3.07 M/mcL (4.19-5.50); Red Cell Distribution Width 18.1 % (11.5-14.5); White Blood Count 7.7 K/mcL (4.3-11.1)
[2019-07-06 05:11] LABS: Calcium 9.9 mg/dL (8.6-10.3); Potassium 3.9 mEq/L (3.5-5.1)
[2019-07-06] MEDS: Insulin LISPRO 300 UNITS/3 ML VIAL SQ SCH ×2 (08:04→11:42)
[2019-07-06] MEDS: hydrALAZINE 25 MG TABLET PO SCH (09:34)
[2019-07-06] MEDS: amLODIPine 5 MG TABLET PO SCH (09:36)
[2019-07-06] MEDS: Lactobacillus 1 EACH CAP.SPRINK PO SCH (09:36)
[2019-07-06] MEDS: Aspirin 81 MG TAB.CHEW PO SCH (09:36)
[2019-07-06 11:43] VITALS: BP 107/60
== END 2019-07-06 16:07 | DRG 853 ==
LOC: 3NENU → SUATTDRO 02:46 → 2ANU 06-19 12:34
PROVIDERS: ADMIT Internal Medicine; ATTEND Internal Medicine
PROC: IRPERMA (2019-06-27 12:00)

== ENCOUNTER 2019-11-07 06:19 | Inpatient (IN) ==
[~2019-11-07 06:19] MED LIST: Vancomycin 1,000 MG, Sodium Chloride IRRigation 1,000 ML IR ONE; ceFAZolin 1,000 MG, Sodium Chloride IRRigation 1,000 ML IR ONE
[2019-11-07] MEDS ORDERED: *HR* FentaNYL (PF) 100 MCG/2 ML VIAL ONE (06:39)
[2019-11-07] MEDS ORDERED: Lidocaine -MPF 2% 2 ML VIAL ONE ×2 (06:40→07:16)
[2019-11-07] MEDS ORDERED: *HR* Propofol 200 MG/20 ML VIAL IVP ONE ×2 (06:40→10:18)
[2019-11-07] MEDS ORDERED: Dexamethasone 4 MG/ML VIAL ONE (06:40)
[2019-11-07] MEDS ORDERED: Ondansetron 4 MG/2 ML VIAL ONE (06:40)
[2019-11-07] MEDS ORDERED: *HR* Rocuronium Bromide 50 MG/5 ML VIAL ONE ×2 (06:40→08:18)
[2019-11-07] MEDS ORDERED: CeFAZolin Syr 2,000MG/20 ML 2,000 MG/20 ML SYRINGE IVPB ONE (06:44)
[2019-11-07] MEDS ORDERED: Ringers Solution, Lactated 1,000 ML IVC SCH ×2 (06:45→07:00)
[2019-11-07] MEDS ORDERED: *HR* OxyCODONE Immed Rel 5 MG TABLET PO PRN (07:00)
[2019-11-07] MEDS ORDERED: Ondansetron 4 MG/2 ML VIAL IVP ONE (07:00)
[2019-11-07] MEDS ORDERED: *HR* HYDROmorphone (PF) 1 MG/ML SYRINGE IVP PRN (07:00)
[2019-11-07] MEDS ORDERED: Acetaminophen IV 1,000 MG/100 ML INFUS..BTL IVPB ONE (07:00)
[2019-11-07] MEDS ORDERED: Heparin 1,000 UNITS/500 mL 1,500 ML ONE (07:14)
[2019-11-07] MEDS ORDERED: Heparin 1,000 UNITS/500 mL 0 ML ONE (07:15)
[2019-11-07] MEDS ORDERED: Isovue-300 50ML VIAL ONE (07:15)
[2019-11-07] MEDS ORDERED: *HR* Vasopressin 20 UNIT/ML VIAL ONE (07:18)
[2019-11-07] MEDS ORDERED: Albumin Human 5% 25.0 GM/500 ML VIAL ONE (07:31)
[2019-11-07] MEDS ORDERED: Vancomycin 1,000 MG, Sodium Chloride IRRigation 1,000 ML IR ONE (08:00)
[2019-11-07] MEDS ORDERED: EPINEPHrine 1 MG/ML VIAL ONE (08:09)
[2019-11-07] MEDS ORDERED: *HR* Atropine Sulfate 1 MG/10 ML SYRINGE ONE (08:23)
[2019-11-07] MEDS ORDERED: *HR* Heparin 5,000 UNIT/ML VIAL ONE (09:09)
[2019-11-07] MEDS ORDERED: Acetaminophen 325 MG TABLET PO PRN (11:25)
[2019-11-07] MEDS ORDERED: *HR* HYDROcodone/Acet 5/325 mg TABLET PO PRN (11:25)
[2019-11-07] MEDS ORDERED: Ondansetron 4 MG/2 ML VIAL IVP PRN (11:25)
[2019-11-07] MEDS ORDERED: Naloxone 0.4 MG/ML INJ IVP PRN (11:25)
[2019-11-07] MEDS: ceFAZolin 2,000 MG in 0.9 % Sodium Chloride 100 ML IVPB SCH (17:47)
[2019-11-07] MEDS: Famotidine 20 MG TABLET PO SCH (21:09)
[2019-11-08] MEDS: ceFAZolin 2,000 MG in 0.9 % Sodium Chloride 100 ML IVPB SCH ×2 (00:03→08:57)
[2019-11-08 05:43] LABS: Eosinophils % 3.8 %; Hemoglobin 8.1 g/dL (12.9-16.9); Lymphocytes % 38.1 %; Red Cell Distribution Width 13.2 % (11.5-14.5)
[2019-11-08 05:46] LABS: Basophils # 0.1 K/mcL (0.0-0.2); Basophils % 0.8 %; Eosinophils # 0.2 K/mcL (0.0-0.6); Hematocrit 24.5 % (37.5-50.1); Immature Granulocytes % 0.3 % (0-4); Immature Platelets 4.3 % (1.1-6.1); Lymphocytes # 2.3 K/mcL (0.6-4.6); Mean Corpuscular HGB Conc 33.1 g/dL (31.6-35.5); Mean Corpuscular Hemoglobin 30.2 pg (28.0-33.3); Mean Corpuscular Volume 91.4 fL (83.0-100.0); Mean Platelet Volume 10.7 fL (9.4-12.4); Monocytes # 0.6 K/mcL (0.0-1.3); Monocytes % 9.2 %; Neutrophils # 2.9 K/mcL (1.6-8.9); Red Blood Count 2.68 M/mcL (4.19-5.50); Segmented Neutrophils % 47.8 %; White Blood Count 6.1 K/mcL (4.3-11.1)
[2019-11-08 06:09] LABS: BUN/Creatinine Ratio 19 (6-26); Blood Urea Nitrogen 19 mg/dL (8-23); Calcium 8.8 mg/dL (8.6-10.3); Carbon Dioxide 22 mEq/L (23-29); Chloride 109 mEq/L (98-107); Glucose 111 mg/dL (70-105); Osmolality,Calculated 297 (280-300); Potassium 4.3 mEq/L (3.5-5.1); Sodium 142 mEq/L (136-145); eGFR For African Americans > 60 (> 60); eGFR For Non-African Americans > 60 (> 60)
[2019-11-08 06:14] LABS: Platelet Count 82 K/mcL (140-400)
[2019-11-08 06:19] LABS: Platelet Estimate Decreased (Normal)
[2019-11-08] MEDS: Famotidine 20 MG TABLET PO SCH (08:24)
[2019-11-08] MEDS ORDERED: amLODIPine 5 MG TABLET PO SCH (09:00)
[2019-11-08] MEDS ORDERED: Aspirin Enteric Coated 81 MG Tablet PO SCH (09:00)
[2019-11-08] MEDS ORDERED: Gentamicin Oint 15 GM TUBE TP SCH (09:00)
[2019-11-08 11:30] VITALS: BP 177/82
== END 2019-11-08 14:50 | disposition home or self-care (01) | DRG 254 ==
LOC: SAMDAY 06:19 → 2NNU 11:07
PROVIDERS: ADMIT Surgery Vascular Surgery; ATTEND Surgery Vascular Surgery

== ENCOUNTER 2021-08-05 11:40 | Inpatient (IN) ==
[2021-08-05 15:09] LABS: Basophils # 0.1 K/mcL (0.0-0.2); Basophils % 0.5 %; Eosinophils # 0.3 K/mcL (0.0-0.6); Eosinophils % 2.1 %; Hematocrit 44.8 % (37.5-50.1); Hemoglobin 14.4 g/dL (12.9-16.9); Immature Granulocytes % 0.5 % (0-4); Lymphocytes # 2.5 K/mcL (0.6-4.6); Lymphocytes % 20.6 %; Mean Corpuscular HGB Conc 32.1 g/dL (31.6-35.5); Mean Corpuscular Hemoglobin 30.6 pg (28.0-33.3); Mean Corpuscular Volume 95.3 fL (83.0-100.0); Mean Platelet Volume 10.6 fL (9.4-12.4); Monocytes # 1.4 K/mcL (0.0-1.3); Monocytes % 11.7 %; Neutrophils # 7.8 K/mcL (1.6-8.9); Platelet Count 224 K/mcL (140-400); Red Cell Distribution Width 14.1 % (11.5-14.5); Segmented Neutrophils % 64.6 %; White Blood Count 12.1 K/mcL (4.3-11.1)
[2021-08-05 15:42] LABS: BUN/Creatinine Ratio 14 (6-26); Blood Urea Nitrogen 19 mg/dL (8-23); Carbon Dioxide 23 mEq/L (23-29); Chloride 108 mEq/L (98-107); Glucose 187 mg/dL (70-105); Osmolality,Calculated 303 (280-300); Potassium 3.9 mEq/L (3.5-5.1); Sodium 143 mEq/L (136-145); eGFR For African Americans > 60 (> 60); eGFR For Non-African Americans 52 (> 60)
[2021-08-05] MEDS ORDERED: Cefepime HCl 1,000 MG in Water for inj. (sterile) 10 ML IVP ONE (16:16)
[2021-08-05] MEDS ORDERED: Naloxone 0.4 MG/ML INJ IVP PRN (18:51)
[2021-08-05] MEDS ORDERED: Acetaminophen 325 MG TABLET PO PRN (18:51)
[2021-08-05] MEDS ORDERED: *HR* Dextrose 50 % in Water (Syg) 50 ML SYRINGE IVP PRN (18:51)
[2021-08-05] MEDS ORDERED: Ondansetron 4 MG/2 ML VIAL IVP PRN (18:51)
[2021-08-05] MEDS ORDERED: MOM Conc 10 ML UD.LIQ PO PRN (18:51)
[2021-08-05] MEDS ORDERED: D5% in Water 1,000 ML IVC PRN (18:51)
[2021-08-05] MEDS ORDERED: Dextrose Gel 15 GM/37.5 ML TUBE PO PRN ×2 (18:51)
[2021-08-05] MEDS ORDERED: Melatonin 3 MG TABLET PO PRN (18:51)
[2021-08-05] MEDS ORDERED: Mag Hydrox/Al Hydrox/Simeth 30 ML UDC PO PRN (18:51)
[2021-08-05] MEDS: amLODIPine 5 MG TABLET PO SCH (19:24)
[2021-08-05] MEDS: 0.9 % Sodium Chloride 1,000 ML IVC SCH (20:11)
[2021-08-05] MEDS: Insulin LISPRO 300 UNITS/3 ML VIAL SUBQ SCH (20:12)
[2021-08-05] MEDS: *HR* Heparin 5,000 UNIT/ML VIAL SQ SCH (22:01)
[2021-08-05] MEDS: Cefepime HCl 1,000 MG in 0.9 % Sodium Chloride Mini Bag 100 ML IVPB SCH (23:37)
[2021-08-05] MEDS: MetroNIDAZOLE 500 MG/100 ML 500 MG/100 ML BAG IVPB SCH (23:38)
[2021-08-06] MEDS: *HR* Heparin 5,000 UNIT/ML VIAL SQ SCH ×4 (06:03→21:42)
[2021-08-06] MEDS ORDERED: Vancomycin 1,750 MG/517.5 ML IV.SOLN IVPB SCH (07:00)
[2021-08-06] MEDS: Cefepime HCl 1,000 MG in 0.9 % Sodium Chloride Mini Bag 100 ML IVPB SCH ×2 (08:23→15:57)
[2021-08-06] MEDS: MetroNIDAZOLE 500 MG/100 ML 500 MG/100 ML BAG IVPB SCH ×3 (08:24→23:53)
[2021-08-06] MEDS: Insulin LISPRO 300 UNITS/3 ML VIAL SUBQ SCH ×4 (08:25→21:42)
[2021-08-06] MEDS: Aspirin Enteric Coated 81 MG Tablet PO SCH (08:25)
[2021-08-06] MEDS ORDERED: Famotidine 20 MG TABLET PO SCH (09:00)
[2021-08-06] MEDS: Ringers Solution, Lactated 1,000 ML IVC SCH (12:02)
[2021-08-06] MEDS ORDERED: Lidocaine 1% 20 ML MDV ONE (13:50)
[2021-08-06] MEDS ORDERED: *HR* Succinylcholine 200 MG/10 ML VIAL IVP ONE (13:52)
[2021-08-06] MEDS ORDERED: *HR* FentaNYL (PF) 100 MCG/2 ML VIAL ONE (13:52)
[2021-08-06] MEDS ORDERED: Lidocaine -MPF 2% 5 ML VIAL ONE (13:52)
[2021-08-06] MEDS ORDERED: Ondansetron 4 MG/2 ML VIAL ONE (13:52)
[2021-08-06] MEDS ORDERED: *HR* Propofol 200 MG/20 ML VIAL IVP ONE (13:53)
[2021-08-06] MEDS ORDERED: EPHEDrine 50 MG/ML VIAL ONE (14:18)
[2021-08-06] MEDS ORDERED: Acetaminophen IV 1,000 MG/100 ML BAG IVPB ONE (14:29)
[2021-08-06] MEDS: 0.9 % Sodium Chloride 1,000 ML IVC SCH (15:34)
[2021-08-06 17:10] LABS: Bacteria,Urine Few per hpf (None-Few); Bilirubin,Urine Negative (Negative); Blood,Urine Small (Negative); Clarity,Urine Clear (Clear); Color,Urine Yellow (Yellow); Glucose,Urine (UA) >=1000 mg/dL (Normal); Ketones,Urine Trace mg/dL (Negative); Leukocyte Esterase,Urine Negative (Negative); Nitrite,Urine Negative (Negative); PH,Urine 5.5 pH Units (5.0-8.0); Protein,Urine 50 mg/dL (Neg-Trace); RBC,Urine 0-3 per hpf (0-3); Specific Gravity,Urine 1.029 (1.010-1.025); Urobilinogen,Urine Normal (Normal); WBC,Urine 0-3 per hpf (0-3)
[2021-08-06] MEDS ORDERED: Cefepime HCl 2,000 MG in 0.9 % Sodium Chloride Mini Bag 100 ML IVPB SCH (18:00)
[2021-08-06] MEDS: Cefepime HCl 2,000 MG in 0.9 % Sodium Chloride Mini Bag 100 ML IVPB SCH (23:54)
[2021-08-07] MEDS ORDERED: Cefepime HCl 2,000 MG in 0.9 % Sodium Chloride Mini Bag 100 ML IVPB SCH (04:00)
[2021-08-07] MEDS: Vancomycin 1,500 MG/265 ML IV.SOLN IVPB SCH (06:25)
[2021-08-07] MEDS: *HR* Heparin 5,000 UNIT/ML VIAL SQ SCH ×2 (07:12→15:57)
[2021-08-07] MEDS ORDERED: Famotidine 20 MG TABLET PO SCH (09:00)
[2021-08-07] MEDS: Insulin LISPRO 300 UNITS/3 ML VIAL SUBQ SCH ×4 (09:20→21:33)
[2021-08-07] MEDS: Aspirin Enteric Coated 81 MG Tablet PO SCH (09:24)
[2021-08-07] MEDS: MetroNIDAZOLE 500 MG/100 ML 500 MG/100 ML BAG IVPB SCH ×2 (09:25→16:29)
[2021-08-07] MEDS: amLODIPine 5 MG TABLET PO SCH (09:31)
[2021-08-07 11:41] LABS: BUN/Creatinine Ratio 25 (6-26); Blood Urea Nitrogen 25 mg/dL (8-23); Calcium 8.9 mg/dL (8.6-10.3); Carbon Dioxide 18 mEq/L (23-29); Chloride 110 mEq/L (98-107); Glucose 132 mg/dL (70-105); Osmolality,Calculated 292 (280-300); Potassium 4.1 mEq/L (3.5-5.1); Sodium 138 mEq/L (136-145); eGFR For African Americans > 60 (> 60); eGFR For Non-African Americans > 60 (> 60)
[2021-08-07 11:49] LABS: Hematocrit 36.9 % (37.5-50.1); Mean Corpuscular HGB Conc 32.8 g/dL (31.6-35.5); Mean Corpuscular Hemoglobin 30.9 pg (28.0-33.3); Mean Corpuscular Volume 94.1 fL (83.0-100.0); Mean Platelet Volume 11.3 fL (9.4-12.4); Platelet Count 217 K/mcL (140-400); Red Blood Count 3.92 M/mcL (4.19-5.50); White Blood Count 9.3 K/mcL (4.3-11.1)
[2021-08-07 11:52] LABS: Hemoglobin 12.1 g/dL (12.9-16.9)
[2021-08-07] MEDS: Cefepime HCl 2,000 MG in 0.9 % Sodium Chloride Mini Bag 100 ML IVPB SCH (12:18)
[2021-08-07] MEDS: Ringers Solution, Lactated 1,000 ML IVC SCH (16:28)
[2021-08-07] MEDS: *HR* Rivaroxaban 10 MG TABLET PO SCH (18:16)
[2021-08-07] MEDS: *HR* Metformin 500 MG TABLET PO SCH (20:04)
[2021-08-08] MEDS: MetroNIDAZOLE 500 MG/100 ML 500 MG/100 ML BAG IVPB SCH ×2 (00:54→08:04)
[2021-08-08] MEDS: Cefepime HCl 2,000 MG in 0.9 % Sodium Chloride Mini Bag 100 ML IVPB SCH ×2 (00:54→12:47)
[2021-08-08 04:59] LABS: Hematocrit 34.6 % (37.5-50.1); Mean Corpuscular HGB Conc 31.8 g/dL (31.6-35.5); Mean Corpuscular Hemoglobin 30.4 pg (28.0-33.3); Mean Corpuscular Volume 95.6 fL (83.0-100.0); Mean Platelet Volume 10.4 fL (9.4-12.4); Platelet Count 197 K/mcL (140-400); Red Blood Count 3.62 M/mcL (4.19-5.50); Red Cell Distribution Width 14.2 % (11.5-14.5); White Blood Count 8.5 K/mcL (4.3-11.1)
[2021-08-08 05:22] LABS: BUN/Creatinine Ratio 26 (6-26); Blood Urea Nitrogen 28 mg/dL (8-23); Calcium 8.8 mg/dL (8.6-10.3); Carbon Dioxide 19 mEq/L (23-29); Chloride 111 mEq/L (98-107); Glucose 139 mg/dL (70-105); Osmolality,Calculated 296 (280-300); Potassium 3.8 mEq/L (3.5-5.1); Sodium 139 mEq/L (136-145); eGFR For African Americans > 60 (> 60); eGFR For Non-African Americans > 60 (> 60)
[2021-08-08] MEDS: Vancomycin 1,500 MG/265 ML IV.SOLN IVPB SCH (05:39)
[2021-08-08] MEDS ORDERED: Famotidine 20 MG TABLET PO SCH (07:30)
[2021-08-08 07:49] VITALS: BP 147/75; PULSE 66; TEMP 97.6; O2SAT 95
[2021-08-08] MEDS: Aspirin Enteric Coated 81 MG Tablet PO SCH (08:04)
[2021-08-08] MEDS: *HR* Metformin 500 MG TABLET PO SCH (08:04)
[2021-08-08] MEDS: *HR* Rivaroxaban 10 MG TABLET PO SCH (08:04)
[2021-08-08] MEDS: Insulin LISPRO 300 UNITS/3 ML VIAL SUBQ SCH ×2 (08:05→11:58)
[2021-08-08] MEDS ORDERED: metroNIDAZOLE 500 MG TABLET PO SCH (15:00)
== END 2021-08-08 15:33 | disposition home health service (06) | DRG 463 ==
LOC: 4WAOSI 11:40 → EMEROOARM 11:40 → 4WAOSI 17:40 → SUATTDRO 19:45
PROVIDERS: ADMIT Internal Medicine; ATTEND Internal Medicine